=== PATIENT | female | born 1980 | race Two or more races ===

== ENCOUNTER → 2017-03-23 | Outpatient (CLI) | payer BC | END | disposition home or self-care (01) | LOC: RAD.S 10:01 | DX: O20.9 Hemorrhage in early pregnancy, unspecified (principal) ==

== ENCOUNTER 2017-03-27 04:26 | Day surgery (SDC) | payer BC ==
--- NOTE | 2017-03-27 19:42 | ER ---
ADMIT: 03/27/2017 RM/LOC: [facility] MR#: [id number] [address] [address] [address] [place] [address] Emergency Room Report SEX: F AGE: 36 : 1980 DATE: 03/27/2017 HISTORY OF PRESENT ILLNESS: Patient is a 36-year-old female, status post tubal ligation [address] Chawla, in [facility]. She was seen by Apoorva Tyson earlier this week for vaginal bleeding, positive urine test, and ultrasound which showed complex left ovarian cyst, but no free-fluid or intrauterine . The patient presents tonight with acute left lower quadrant abdominal flank pain associated with scant vaginal bleeding and no syncope. PAST MEDICAL HISTORY: ILLNESSES: None. OPERATIONS: Tubal ligation and . ALLERGIES: NONE. MEDICATIONS: None. SOCIAL HISTORY: , nonsmoker, nondrinker, no illicit drugs. REVIEW OF SYSTEMS: Last menstrual period on January 29, 2017. 4, para 3-0-0-3. Otherwise, 12-point review of systems negative for all other systems, illnesses, or operations except as outlined above. PHYSICAL EXAMINATION: VITAL SIGNS: Temp 97.6, pulse 81, respirations 32, BP 120/77, SaO2 100% on room air. GENERAL: Severe distress, nontoxic, nondiaphoretic without jaundice or icterus. HEENT: Normocephalic. No evidence of epistaxis, rhinorrhea, or otorrhea. NECK: Supple without lymphadenopathy or thyromegaly. CHEST: Clear. Breath sounds equal. HEART: Regular rate and rhythm without murmur, gallop, or edema. ABDOMEN: Soft, diffusely tender without mass or megaly. Bowel sounds hypoactive. PELVIC: Deferred. Minimal bleeding noted on her pad. MEDICAL DECISION MAKING: Ultrasound confirms large hemoperitoneum extending to diaphragm. No intrauterine , complex left ovarian cyst, consistent with ectopic. Hemoglobin 10.4, CRP less than 0.29. Potassium 3.1, glucose 108, quantitative HCG 3880. B positive, antibody screen negative. UA cath specimen, trace leukocyte esterase, less than 1 WBC. The patient had 2 large-bore IVs, bolus 30 mL/kg. Zofran. Dilaudid titrated for pain. Discussed case with Dr. Landeros, who took patient to OR for emergent ADMIT: 03/27/2017 RM/LOC: [facility] MR#: [id number] [address] [id number] [address] N[address] [place] [address] Emergency Room Report SEX: F AGE: 36 : 1980 laparotomy for ectopic. Notified Dr. Flores. Due to patient's presentation, findings, and intervention, 30 minutes of critical care is warranted. DIAGNOSIS: Left tuboovarian ectopic associated with hemoperitoneum. ADMISSION/DISCHARGE CONDITION: Critical. The patient is a full code. Tien Álvarez MD/ lianna JOB #: [id number] CC: Elías Landeros MD, Attending Physician Elías Landeros MD, Family Physician Elías Landeros MD
--- NOTE | 2017-05-01 08:25 | OR ---
ADMIT: 03/27/2017 RM/LOC: [facility] MR#: [id number] [address] [address] [address] N[address] [place] [address] Operative/Delivery Room Report SEX: F AGE: 36 : 1980 SURGERY DATE: 03/27/2017 SURGEON: Elías Landeros MD PRINCIPAL DIAGNOSIS: Ectopic . POSTOPERATIVE DIAGNOSES: 1. Ectopic . 2. 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 PROCEDURE: Laparoscopy with lysis of adhesions and removal of left tubal ectopic . INDICATION: The patient is a 36-year-old female, status post tubal ligation in the distant past, who presented with complaints of pain, positive test. Ultrasound findings were suspicious for ectopic on the right side. However, in the course of the laparoscopy, no swelling noted in the right adnexa but a ruptured ectopic in the left proximal fallopian tube. ESTIMATED BLOOD LOSS: 400 mL. COMPLICATIONS: None. DESCRIPTION OF PROCEDURE: The patient was taken to the operating room, where she was prepped and draped in the usual fashion in dorsal lithotomy position. Speculum was placed in vagina, and uterine manipulator was placed without difficulty. Speculum was removed. Gloves were changed and attention was then turned to the abdomen. A 5 mm skin incision was made infraumbilically. Veress needle was introduced through this incision, and the patient's abdomen was insufflated with CO2 gas. Veress needle was removed, and a 5 mm trocar was introduced through this incision, and intraabdominal placement was confirmed with the laparoscope. A 5 mm skin incision was then made suprapubically and a 5 mm laparoscopy trocar was introduced through this incision under direct laparoscopic visualization. On the patient's abdomen finding, she was noted to have moderate to large amount of blood present in the peritoneal cavity, this was suctioned out with a laparoscopic suction prover. She was noted to have an adhesion from omentum to the anterior abdominal wall, which was interfering with visualization of the uterus and adnexal structures. A 5 mm skin incision was made in the patient's right lower quadrant and a 5 mm trocar was introduced through this incision under direct laparoscopic visualization. The Thunderbeat coagulating cutting device was then used to take down the adhesions of omentum at the anterior abdominal wall. The pelvis was then surveyed and a left-sided tubal ectopic was noted. This was removed with the Thunderbeat bipolar cutting device. A 1 cm skin incision was then made in the patient's left lower quadrant. The ADMIT: 03/27/2017 RM/LOC: [facility] MR#: [id number] [address] [place] [address] [address] [place] [address] Operative/Delivery Room Report SEX: F AGE: 36 : 1980 trocar was introduced through this incision and an endoscopic capture bag was used to remove the left fallopian tube with ectopic . Good hemostasis was then obtained with electrocautery in the pedicle site. Abdomen was then again suctioned and good hemostasis was noted. The 10 mm trocar was then removed and a single suture of 0 Vicryl was used to close the fascia through this incision. The remainder of the trocars were then removed under laparoscopic visualization after the abdomen was deflated. The trocar sites were then closed utilizing interrupted subcuticular stitches of 4-0 Monocryl, and the trocar sites were instilled with approximately 2-3 mL of 0.5% Marcaine in each site. Uterine manipulator was then removed. The patient tolerated the procedure well and was taken to the recovery room in stable condition. All sponge, instrument, and needle counts were correct. Elías Landeros MD/ lianna JOB #: [id number] CC: Elías Landeros, Attending Physician Elías Landeros, Family Physician
== END 2017-03-27 13:30 | disposition home or self-care (01) ==
LOC: ER 04:26 → SSS 07:05
PROC: 0UB64ZZ Excision of Left Fallopian Tube, Percutaneous Endoscopic Approach (ICD-10-PCS; principal; 2017-03-27)
PROC: 10T24ZZ Resection of Products of Conception, Ectopic, Percutaneous Endoscopic Approach (ICD-10-PCS; principal; 2017-03-27)
DX: O00.10 Tubal pregnancy without intrauterine pregnancy (principal); O16.1 Unspecified maternal hypertension, first trimester; K66.0 Peritoneal adhesions (postprocedural) (postinfection)